=== PATIENT | female | born 1955 | race Caucasian/White ===

== ENCOUNTER 2020-08-04 16:34 | Outpatient (REF) | payer BC, SELFPAY ==
--- NOTE | 2020-08-04 16:39 | MM_ITS ---
EXAMINATION: MM SCREENING DIGITAL BREAST TOMOSYNTHESIS, BILATERAL CLINICAL INFORMATION: Screening. Asymptomatic. The lifetime risk of breast cancer based on the Tyrer-Cuzick Model is 7%. COMPARISON: Mammography: May 15, 2019 and studies dating back to May 13, 2012 TECHNIQUE: Digital breast tomosynthesis is performed in both the craniocaudal and mediolateral oblique views along with computer-aided detection (CAD). Synthesized 2D images are generated from the tomosynthesis. FINDINGS: There are scattered areas of fibroglandular density (ACR BI-RADS breast composition Category b). There are no significant masses, abnormal calcifications, or other abnormalities. MM/MM tomosynthesis screening BI IMPRESSION: There are no significant changes from prior study. ASSESSMENT: BI-RADS 1: Negative RECOMMENDATION: Routine annual mammography screening. This patient's information was entered into a reminder system with a target due date for their next mammogram.
== END 2020-08-04 16:35 | disposition home or self-care (01) ==
LOC: HO.MAMMO 16:34
PROVIDERS: Visit Provider Physician Assistant
DX: Z12.31 Encounter for screening mammogram for malignant neoplasm of breast (principal)
CPT/HCPCS: 77063; 77067

== ENCOUNTER 2021-08-18 16:07 | Outpatient (REF) | payer BC, SELFPAY ==
--- NOTE | ~2021-08-18 | MM_ITS ---
EXAMINATION: MM SCREENING DIGITAL BREAST TOMOSYNTHESIS, BILATERAL CLINICAL INFORMATION: Screening. Asymptomatic. The lifetime risk of breast cancer based on the Tyrer-Cuzick Model is 9.3%. COMPARISON: Mammography: August 04, 2020 and studies dating back to May 13, 2012 TECHNIQUE: Digital breast tomosynthesis is performed in both the craniocaudal and mediolateral oblique views along with computer-aided detection (CAD). Synthesized 2D images are generated from the tomosynthesis. FINDINGS: There are scattered areas of fibroglandular density (ACR BI-RADS breast composition Category b). There are no significant masses, abnormal calcifications, or other abnormalities. MM/MM tomosynthesis screening BI IMPRESSION: There are no significant changes from prior study. ASSESSMENT: BI-RADS 1: Negative RECOMMENDATION: Routine annual mammography screening. This patient's information was entered into a reminder system with a target due date for their next mammogram.
== END 2021-08-18 16:08 | disposition home or self-care (01) ==
LOC: HO.MAMMO 16:07
PROVIDERS: Visit Provider Family Medicine
DX: Z12.31 Encounter for screening mammogram for malignant neoplasm of breast (principal)
CPT/HCPCS: 77063; 77067

== ENCOUNTER 2022-08-25 10:13 | Outpatient (REF) | payer BC, SELFPAY ==
--- NOTE | ~2022-08-25 | MM_ITS ---
EXAMINATION: MM SCREENING DIGITAL BREAST TOMOSYNTHESIS, BILATERAL CLINICAL INFORMATION: Screening. Asymptomatic. Family history breast cancer, sister. The lifetime risk of breast cancer based on the Tyrer-Cuzick Model is 13%. COMPARISON: Mammography: 08/18/2021, 08/04/2020, 05/15/2019 TECHNIQUE: Digital breast tomosynthesis is performed in both the craniocaudal and mediolateral oblique views along with computer-aided detection (CAD). Synthesized 2D images are generated from the tomosynthesis. FINDINGS: There are scattered areas of fibroglandular density (ACR BI-RADS breast composition Category b). There are no significant masses, abnormal calcifications, or other abnormalities. Parenchymal pattern is similar to prior studies. There is no developing density or architectural abnormality. The axilla and skin contours are unremarkable. No significant changes. MM/MM tomosynthesis screening BI IMPRESSION: No mammographic evidence of malignancy. ASSESSMENT: BI-RADS 1: Negative RECOMMENDATION: Routine annual mammography screening. This patient's information was entered into a reminder system with a target due date for their next mammogram.
== END 2022-08-25 10:14 | disposition home or self-care (01) ==
LOC: HO.MAMMO 10:13
PROVIDERS: PCP Physician Assistant; Visit Provider Physician Assistant
DX: Z12.31 Encounter for screening mammogram for malignant neoplasm of breast (principal)
CPT/HCPCS: 77063; 77067

== ENCOUNTER 2023-09-24 14:35 | Outpatient (REF) | payer MEDICARE, SELFPAY | END 2023-09-24 14:36 | disposition home or self-care (01) | LOC: HO.MAMMO 14:35 | PROVIDERS: PCP Physician Assistant; Visit Provider Physician Assistant | DX: Z12.31 Encounter for screening mammogram for malignant neoplasm of breast (principal) | CPT/HCPCS: 77063; 77067 ==

== ENCOUNTER → 2023-09-24 14:45 | Outpatient (BNV) | payer MEDICARE, SELFPAY | PROVIDERS: PCP Physician Assistant; Visit Provider Radiology Diagnostic Radiology | DX: Z12.31 Encounter for screening mammogram for malignant neoplasm of breast (principal) | CPT/HCPCS: 77063; 77067 ==

== ENCOUNTER 2023-10-12 06:51 | Day surgery (SDC) | payer MEDICARE, SELFPAY ==
[2023-10-10 11:16] VITALS: BMI 24.6
--- NOTE | 2023-10-11 09:24 | HO.ANESPROP2 ---
Documented by User: Pattie José NP 10/11/23 09:25 HPI - Anesthesia Eval Consult details Narrative: 67yo F for Colonoscopy PMFSH Past Medical History Medical History Diverticulitis Hyperlipidemia Surgical History Surgical History Hx of lumpectomy H/O colonoscopy Social History Social History Patient Tobacco Use Status: Former Tobacco user Quit Date: 2016 Use of substances other than those prescribed or required for medical reasons: No Are you DNR?: No Advance Directives: No Advance Directives Information Provided: Yes Meds Allergies Allergy/AdvReac Type Severity Reaction Status Date / Time Iodinated Contrast Media Allergy Intermediate HIVES Unverified 06/24/20 17:23 [IV DYE, IODINE CONTAINING] CT Scan Dye Allergy Unknown hives Uncoded 01/21/19 00:00 Home Medications Medication Instructions Recorded Confirmed Last Taken Type atorvastatin 20 mg tablet 20 mg PO Q OTHER DAY 10/10/23 10/10/23 Unknown History cetirizine 5 mg tablet 5 mg PO DAILY PRN Allergy Symptoms 10/10/23 10/10/23 Unknown History coenzyme Q10 10 mg capsule (Co 10 mg PO DAILY 10/10/23 10/10/23 Unknown History Q-10) multivitamin 1 tab PO DAILY 10/10/23 10/10/23 Unknown History omega 3-dmu-edf-fish oil 1,000 mg 1 cap PO DAILY 10/10/23 10/10/23 10/07/23 History (120 mg-180 mg) capsule (Fish Oil) turmeric root extract 500 mg 500 mg PO DAILY 10/10/23 10/10/23 10/07/23 History capsule Exam Height,Weight and Vital Signs: Height 5 ft 8 in Weight 73.482 kg Assessment and Plan Assessment Anesthesia Assessment: Chart Reviewed Documented by User: Ericka Grove MD 10/12/23 07:40 PMF Past Medical History Medical History Diverticulitis Hyperlipidemia Surgical History Surgical History Hx of lumpectomy H/O colonoscopy History of Problems with Anesthesia: No Social History Social History Patient Tobacco Use Status: Former Tobacco user Quit Date: 2016 Use of substances other than those prescribed or required for medical reasons: No Are you DNR?: No Advance Directives: No Advance Directives Information Provided: Yes Meds Allergies Allergy/AdvReac Type Severity Reaction Status Date / Time Iodinated Contrast Media Allergy Intermediate HIVES Unverified 06/24/20 17:23 [IV DYE, IODINE CONTAINING] CT Scan Dye Allergy Unknown hives Uncoded 01/21/19 00:00 Home Medications Medication Instructions Recorded Confirmed Last Taken Type atorvastatin 20 mg tablet 20 mg PO Q OTHER DAY 10/10/23 10/10/23 Unknown History cetirizine 5 mg tablet 5 mg PO DAILY PRN Allergy Symptoms 10/10/23 10/10/23 Unknown History coenzyme Q10 10 mg capsule (Co 10 mg PO DAILY 10/10/23 10/10/23 Unknown History Q-10) multivitamin 1 tab PO DAILY 10/10/23 10/10/23 Unknown History omega 1-qkw-qbh-fish oil 1,000 mg 1 cap PO DAILY 10/10/23 10/10/23 10/07/23 History (120 mg-180 mg) capsule (Fish Oil) turmeric root extract 500 mg 500 mg PO DAILY 10/10/23 10/10/23 10/07/23 History capsule Exam Airway Mallampati Class: II TM Dist: >3cm Neck ROM: Full Loose/Missing/Broken Teeth: No Heart: RRR Lungs: CTA Assessment and Plan Assessment Anesthesia Assessment: Anesthesia Plan Discussed Final Anesthetic Review History of Problems with Anesthesia: No NPO: Yes ASA Class: II Final Preanesthetic Review: Meds/Allgs Chart Reviewed, Consent Obtained/Reviewed and Anes Risks/Benef Reviewed Patient Risk: Low Procedure Risk: Low Anesthetic Plan Anesthetic Plan: MAC: Disposition: Standard PACU
[2023-10-12 07:10] VITALS: BMI 24.3
[2023-10-12 07:35] VITALS: BP 124/87; PULSE 72; RESP 16; TEMP 36.7; O2SAT 97
--- NOTE | 2023-10-12 08:26 | MHC.SHP ---
Pre-Procedural Eval Section A Date of Service: 10/12/23 Section B Chief Complaint: screening Details of Present Illness: see H&P no chagnes Relevant Family History (Specify if Yes): No Relevant Social History: None Present Medications: see Short Stay Collaborative assessment Medical History: No relevant PMH History of Previous Operations: No relevant previous surgery Allergies: Allergies Allergy/AdvReac Type Severity Reaction Status Date / Time Iodinated Contrast Media Allergy Intermediate HIVES Verified 10/12/23 07:42 [IV DYE, IODINE CONTAINING] CT Scan Dye Allergy Unknown hives Uncoded 01/21/19 00:00 Review of Systems Sugical H&P ROS: Negative: Constitution, Cardiovascular, Respiratory, Neurological, Psychiatric, Hem-Onc, Allergic/Immunologic, Gastrointestinal, Genitourinary, Musculoskeletal, Integumentary, Endocrine and Eyes/Ears/Nose/Throat Exam Surgical H&P Exam: Normal: HEENT, Normal: Heart, Normal: Lungs, Normal: Extremities, Normal: Abdomen, Normal: Skin and Normal: Neurological Plan Diagnosis/Plan: Unchanged I have reviewed the history and physical and performed a pertinent physical examination on my patient. No changes have occurred unless specified. Time Spent With Patient Time: Total time managing care of this patient today ____ minutes.
[2023-10-12 09:00] VITALS: BP 116/71; PULSE 68; RESP 18; TEMP 36.6; O2SAT 99
[2023-10-12 09:15] VITALS: BP 131/69; PULSE 60; RESP 20; TEMP 36.2; O2SAT 99
== END 2023-10-12 09:40 | disposition home or self-care (01) ==
PROVIDERS: PCP Physician Assistant; Visit Provider Internal Medicine Gastroenterology
PROC: 0DJD8ZZ Inspection of Lower Intestinal Tract, Via Natural or Artificial Opening Endoscopic (ICD-10-PCS; CPT 45378; principal; 2023-10-12 08:10)
DX: Z12.11 Encounter for screening for malignant neoplasm of colon (principal); Z86.010 Personal history of colon polyps; Z80.0 Family history of malignant neoplasm of digestive organs; Z83.719 Family history of colon polyps, unspecified; D12.0 Benign neoplasm of cecum; K57.30 Diverticulosis of large intestine without perforation or abscess without bleeding; K64.8 Other hemorrhoids; Z87.19 Personal history of other diseases of the digestive system; E78.5 Hyperlipidemia, unspecified; Z79.899 Other long term (current) drug therapy; Z87.891 Personal history of nicotine dependence
CPT/HCPCS: 45385; 88305; J2704

== ENCOUNTER 2024-07-11 09:01 | Outpatient (REF) | payer MEDICARE, SELFPAY ==
--- NOTE | ~2024-07-11 | MM_ITS ---
EXAMINATION: BONE DENSITOMETRY CLINICAL INDICATION: Osteopenia. COMPARISON: Previous BD dated 06/06/2019 and baseline BD dated 04/16/2008. TECHNIQUE: Using a [employer] DXA System (software version: 13.1) manufactured by [employer], dual-energy x-ray absorptiometry was performed of the lumbar spine and left hip. The images are of good technical quality. Summary results are attached. FINDINGS: LEFT FEMUR, NECK: Current: BMD 0.865 g/cm2, Z-score 0.2, T-score -1.2, osteopenia. Prior: BMD 0.844 g/cm2. Baseline: BMD 1.006 g/cm2. LEFT FEMUR, TOTAL: Current: BMD 0.884 g/cm2, Z-score 0.2, T-score -1.0, normal, 3.4% decrease from previous, 11.0% decrease from baseline (<5% change is not significant). Prior: BMD 0.915 g/cm2. Baseline: BMD 0.993 g/cm2. AP SPINE L1-L4: Current: BMD 1.085 g/cm2, Z-score 0.6, T-score -0.8, normal, 0.4% decrease from previous, 7.5% decrease from baseline (<5% change is not significant). Prior: BMD 1.089 g/cm2. Baseline: BMD 1.173 g/cm2. IDENTIFIED RISK FACTORS: Menopause, low calcium intake, family history (parent hip fracture), secondary osteoporosis (intestinal or bowel disease). HISTORY OF FRACTURE: None listed. MEDICATIONS: None listed. MM/XR DEXA axial skeleton IMPRESSION: 1. DIAGNOSIS: Osteopenia based on the lowest T-score value of -1.2 in the femoral neck applying World Health Organization criteria. 2. 10-YEAR FRACTURE RISK PREDICTION, FRAX: Major osteoporotic fracture (clinical spine, forearm, hip or shoulder) 15.7%. Hip fracture 1.4%. 3. Treatment Recommendations: NOF guidelines recommend consideration for treatment in postmenopausal women and men age 50 and older presenting with the following: -A hip or vertebral (clinical or morphometric) fracture. -T-score less than or equal to -2.5 at the femoral neck or spine after appropriate evaluation to exclude secondary causes. -Low bone mass at the hip or spine and a 10-year fracture probability by FRAX of greater than or equal to 3% for hip fracture or greater than or equal to 20% for major osteoporotic fracture based on the [place] adapted WHO algorithm. 4. Other Recommendations: All treatment decisions require clinical judgment and consideration of individual patient factors, including patient preferences, comorbidities, previous drug use, risk factors not captured in the FRAX model (e.g. frailty, falls, vitamin D deficiency, increased bone turnover, interval significant decline in bone density) and possible under or overestimation of fracture risk by FRAX. Additional medical evaluation for secondary cause of low bone mineral density may be appropriate. FUTURE SCAN RECOMMENDATION: People with diagnosed cases of osteoporosis or at high risk for fracture should have regular bone mineral density tests. For patients eligible for Medicare, routine testing is allowed once every 2 years. The testing frequency can be increased to one year for patients who have rapidly progressing disease, those who are receiving or discontinuing medical therapy to restore bone mass, or have additional risk factors. Electronically signed by: Brent Medina MD 07/21/2024 09:09 AM EDT RP
== END 2024-07-11 09:02 | disposition home or self-care (01) ==
LOC: HO.MAMMO 09:01
PROVIDERS: PCP Physician Assistant; Visit Provider Physician Assistant
DX: Z13.820 Encounter for screening for osteoporosis (principal); Z78.0 Asymptomatic menopausal state; M85.89 Other specified disorders of bone density and structure, multiple sites
CPT/HCPCS: 77080

== ENCOUNTER 2024-08-28 08:11 | Outpatient (REF) | payer MEDICARE, SELFPAY | END 2024-08-28 08:12 | disposition home or self-care (01) | LOC: HO.CT 08:11 | PROVIDERS: PCP Physician Assistant; Visit Provider Physician Assistant | DX: Z13.89 Encounter for screening for other disorder (principal) ==

== ENCOUNTER 2024-09-01 07:45 | Outpatient (REF) | payer MEDICARE, SELFPAY ==
--- NOTE | ~2024-09-01 | CT_ITS ---
EXAMINATION: CT CHEST WITH CONTRAST CLINICAL INFORMATION: Pulmonary nodule. COMPARISON: None available. TECHNIQUE: Multidetector volumetric CT imaging of the chest was obtained after the administration of 65 mL of Omnipaque 350 intravenous contrast without immediate adverse reactions. Axial MIP volume rendering provided. Sagittal and coronal reformatted images were obtained. This CT examination was performed using dose optimization techniques as appropriate, variously including the following: *Automated exposure control *Adjustment of mA and/or kV according to patient size (this includes techniques or standardized protocols for targeted exams where dose is matched to indication/reason for exam; i.e. extremities or head) *Use of iterative reconstruction technique DLP: 104 mGy-cm FINDINGS: LUNGS: Minimal biapical scarring. 2 mm nodule left upper lobe on image 85 of series 6. No focal consolidation. Central airways are patent. MEDIASTINUM: No bulky axillary, hilar or mediastinal lymphadenopathy. Great vessels are of normal caliber. Heart size is normal. No pericardial effusion. PLEURA: No pleural effusion. UPPER ABDOMEN: Hepatic steatosis. 1.4 x 1.6 cm left adrenal nodule measuring 50 Hounsfield unit. Recommend follow-up adrenal washout CT in one year. It stable for greater than equal to 1 year, no further follow-up imaging. OSSEOUS STRUCTURES: No destructive bone lesions. CT/CT chest w IV con IMPRESSION: 2 mm pulmonary nodule. No further imaging follow-up is needed. 1.4 x 1.6 cm left adrenal nodule measuring 50 Hounsfield unit. Recommend follow-up adrenal washout CT in one year. It stable for greater than equal to 1 year, no further follow-up imaging. Hepatic steatosis. Fleischner guidelines were followed. Electronically signed by: Ranjit Sidhu MD 09/01/2024 01:10 PM [facility]
[2024-09-01] MEDS: iohexoL 350 MG/ML 100 ML INFUS..BTL 65 ML IV (08:49)
[2024-09-02 14:32] LABS: Creatinine POC 0.6 mg/dL (0.5-1.4); GFR POC > 60
== END 2024-09-01 07:46 | disposition home or self-care (01) ==
LOC: HO.CT 07:45
PROVIDERS: PCP Physician Assistant; Visit Provider Physician Assistant
DX: R91.1 Solitary pulmonary nodule (principal)
CPT/HCPCS: 71260; 82565; Q9967

== ENCOUNTER 2024-10-22 09:37 | Outpatient (REF) | payer MEDICARE, SELFPAY ==
--- OUTSIDE RECORDS SUMMARY | 2024-10-22 10:21 | XMS_ITS ---
Author Name [facility] Organization Unknown History of Medication Use Medication Directions Dispensed Refills Start Date End Date Stat us diclofenac (VOLTAREN) 1 % gel APPLY 4 GRAMS TOPICALLY 4 (FOUR) TIMES A DAY. USE DOSING CARD TO MEASURE DOSE. APPLY TO ENTIRE AFFECT AREA. 03/12/2024 active betamethasone acetate-betamethason e sodium phosphate (CELESTONE) injection 9 mg 9 mg, Intra-articular, Once PRN Procedure, Starting on Lidia 01/03/24 at 0930, For 1 dose 01/05/2024 completed diclofenac (VOLTAREN) 1 % gel Apply 4 g topically 4 (four) times a day. Use dosing card to measure dose. Apply to entire affect area. 11/27/2023 active atorvastatin (LIPITOR) 20 MG tablet Take 20 mg by mouth every other day. 11/27/2023 active Problems Problem Status Onset Date Problem Type Date of Resolution Source Primary osteoarthritis of both knees active EncounterDiagnosisAct CCT Patellofemoral arthralgia of both knees active 2023-11-25 ProblemAct [facility]
== END 2024-10-22 09:38 | disposition home or self-care (01) ==
LOC: HO.MAMMO 09:37
PROVIDERS: PCP Physician Assistant; Visit Provider Physician Assistant
DX: Z12.31 Encounter for screening mammogram for malignant neoplasm of breast (principal)
CPT/HCPCS: 77063; 77067

== ENCOUNTER → 2024-10-22 09:45 | Outpatient (BNV) | payer MEDICARE, SELFPAY | PROVIDERS: PCP Physician Assistant; Visit Provider Internal Medicine | DX: Z12.31 Encounter for screening mammogram for malignant neoplasm of breast (principal) | CPT/HCPCS: 77063; 77067 ==